=== PATIENT | female | born 1955 | race Hispanic/Latino ===

== ENCOUNTER 2019-02-11 19:36 | Observation (INO) | payer OTHER ==
[~2019-02-11] VITALS: Ht 162.6 cm; Wt 63.5 kg
[2019-02-11 20:07] LABS: BASOPHILS % 0.7 % (0.0-1.0); EOSINOPHILS # (AUTO) 0.1 (0.0-0.4); EOSINOPHILS % 1.2 % (0.0-6.0); HEMATOCRIT 33.2 % (34.2-44.1); HEMOGLOBIN 11.1 g/dL (12.0-16.0); LYMPHOCYTES # (AUTO) 1.7 (1.0-3.2); LYMPHOCYTES % 28.4 % (18.0-39.1); MEAN CORPUSCULAR HEMOGLOBIN 26.9 pg (28-32); MEAN CORPUSCULAR HGB CONC 33.4 g/dL (31-35); MEAN CORPUSCULAR VOLUME 80.6 fL (81-99); MONOCYTES # (AUTO) 0.8 (0.2-0.8); MONOCYTES % 13.9 % (4.4-11.3); NEUTROPHILS # (AUTO) 3.4 (2.1-6.9); NEUTROPHILS % 55.5 % (38.7-80.0); PLATELET COUNT 265 x10e3/uL (140-360); RED BLOOD COUNT 4.12 x10e6/uL (3.6-5.1); RED CELL DISTRIBUTION WIDTH 15.2 % (11.7-14.4)
[2019-02-11 20:22] LABS: ALANINE AMINOTRANSFERASE 11 IU/L (0-55); ALBUMIN 3.8 g/dL (3.5-5.0); ALBUMIN/GLOBULIN RATIO 1.1 (0.8-2.0); ALKALINE PHOSPHATASE 85 IU/L (40-150); ANION GAP 14.7 mmol/L (8-16); BLOOD UREA NITROGEN 10 mg/dL (7-26); BUN/CREATININE RATIO 15 (6-25); CALCIUM 9.6 mg/dL (8.4-10.2); CARBON DIOXIDE 26 mmol/L (22-29); CHLORIDE 96 mmol/L (98-107); CREATINE KINASE 58 IU/L (29-168); CREATININE, SERUM 0.68 mg/dL (0.57-1.11); EST GLOMERULAR FILTRATION RATE > 60 ML/MIN (60-); GLUCOSE 109 mg/dL (74-118); POTASSIUM 3.7 mmol/L (3.5-5.1); SODIUM 133 mmol/L (136-145)
[2019-02-11 20:23] LABS: AMYLASE 63 U/L (25-125); LIPASE 18 U/L (8-78)
--- NOTE | 2019-02-11 20:34 | NUR ---
pt to restroom for ua collection
[2019-02-11 20:49] LABS: BILIRUBIN,URINE NEGATIVE (NEGATIVE); CLARITY,URINE CLEAR (CLEAR); COLOR,URINE YELLOW (YELLOW); KETONES,URINE TRACE (NEGATIVE); LEUKOCYTE ESTERASE ,URINE NEGATIVE (NEGATIVE); NITRITE,URINE NEGATIVE (NEGATIVE); PROTEIN,URINE DIPSTICK NEGATIVE (NEGATIVE); URINE UROBILINOGEN 0.2 mg/dL (0.2 - 1)
--- NOTE | 2019-02-11 20:49 | NUR ---
URINE COLLECTED AND SENT
[2019-02-11 21:01] LABS: EPITHELIAL CELLS,URINE RARE /LPF
[2019-02-11] MEDS ORDERED: MORPHINE SULFATE 2 MG/ML SYR 1ML IV STA (21:14)
[2019-02-11] MEDS ORDERED: PANTOPRAZOLE 40 MG 10ML VIAL IV STA (21:14)
[2019-02-11] MEDS ORDERED: DICYCLOMINE HCL 20 MG/2 ML VIAL IM ONE (21:15)
--- NOTE | 2019-02-11 22:50 | Diagnostic Imaging Report ---
EXAM: Right Upper Quadrant Ultrasound INDICATION: ^RUQ PAIN ^[id number] ^2108 ^Y COMPARISON: None. TECHNIQUE: Transverse and longitudinal images of the right upper abdomen were obtained. FINDINGS: Liver: Size: 14.5 cm in the right midclavicular line, normal Appearance: Normal echogenicity, smooth contour Mass: No focal masses Gallbladder: Stones/Sludge: Shadowing gallstones measuring up to 2.3 cm. Wall: 0.3 cm Appearance: No pericholecystic fluid or hydrops. Sonographic Sethi's Sign: Negative Bile Ducts: Intrahepatic Ducts: No dilatation Extrahepatic Ducts: Common bile duct measures 1.2 cm, dilated. Echogenic structure within common bile duct, measuring 1.2 cm. Pancreas: Visualized pancreas is unremarkable. Right Kidney: Size: 9.4 cm Echogenicity: Normal Parenchymal thickness: Normal Collecting system: No hydronephrosis Stones: None Cyst/Mass: None Vessels: Aorta: Visualized portions are normal Inferior Vena Cava: Visualized portions are normal Main Portal Vein: 0.6 cm, normal size with hepatopetal flow. Free Fluid: No ascites or pleural effusion IMPRESSION: Cholelithiasis without evidence of cholecystitis. Dilated common bile duct with echogenic lesion within the duct, representing choledocholithiasis. Signed by: Dr. Alexander Michael MD on 02/11/2019 10:06 PM
--- OUTSIDE RECORDS SUMMARY | 2019-02-11 23:29 | XMS REPORT ---
[facility] Address Unknown Phone Unavailable Care Team Providers Care Produce Manager Name Role Phone Jeremi SILVA Unavailable Unavailable Problems This patient has no known problems. Allergies, Adverse Reactions, Alerts This patient has no known allergies or adverse reactions. Medications This patient has no known medications. Encounters Start Date/Time End Date/Time Encounter Type Admission Type Attending [facility] Facility Care Department Encounter ID 2018-04-06 00:00:00 2018-04-06 00:00:00 Outpatient [facility] [id number] 2018-04-06 00:00:00 2018-04-06 00:00:00 Outpatient [facility] [id number] 2018-04-06 00:00:00 2018-04-06 00:00:00 Outpatient [facility] [id number] 2018-03-16 00:00:00 2018-03-16 00:00:00 Outpatient [facility] [id number] 2018-03-16 00:00:00 2018-03-16 00:00:00 Outpatient [facility] [id number] 2018-03-15 00:00:00 2018-03-15 00:00:00 Outpatient [facility] [id number] 2018-03-15 00:00:00 2018-03-15 00:00:00 Outpatient [facility] [id number] 2018-03-10 00:00:00 2018-03-10 00:00:00 Outpatient [facility] [id number] 2018-03-10 00:00:00 2018-03-10 00:00:00 Outpatient [facility] [id number] 2018-02-12 00:00:00 2018-02-12 00:00:00 Outpatient [facility] [id number] 2018-02-11 08:58:48 2018-02-11 08:58:48 Outpatient [facility] [id number] 2018-02-11 00:00:00 2018-02-11 00:00:00 Outpatient [facility] [id number] 2018-02-08 07:19:54 2018-02-08 07:19:54 Outpatient [facility] [id number] 2018-02-03 08:56:36 2018-02-03 08:56:36 Outpatient [facility] [id number] 2018-02-01 13:56:51 2018-02-01 13:56:51 Outpatient [facility] [id number] 2017-04-06 00:00:00 2017-04-06 00:00:00 Outpatient [facility] [id number] 2016-09-30 00:00:00 2016-09-30 00:00:00 Outpatient [facility] [id number] Results Test Description Test Time Test Comments Text Results Atomic Results Result Comments US GALLBLADDER 2019-02-11 22:01:00 [place] [address] Patient Name: MACARIO PAEZ MR #: [id number] : 1955 Age/Sex: 63/F Req #: [id number] Adm Physician: Ordered by: ZACHARY SILVA MD Report #: [id number] Location: ER Room/Bed: Procedure: [id number] US/US GALLBLADDER Exam Date: 02/11/19 Exam Time: 2108 REPORT STATUS: Signed EXAM: Right Upper Quadrant Ultrasound INDICATION: RUQ PAIN [id number] Y COMPARISON: None. TECHNIQUE: Transverse and longitudinal images of the right upper abdomen were obtained. FINDINGS: Liver: Size: 14.5 cm in the right midclavicular line, normal Appearance: Normal echogenicity, smooth contour Mass: No focal masses Gallbladder: Stones/Sludge: Shadowing gallstones measuring up to 2.3 cm. Wall: 0.3 cm Appearance: No pericholecystic fluid or hydrops. Sonographic Sethi's Sign: Negative Bile Ducts: Intrahepatic Ducts: No dilatation Extrahepatic Ducts: Common bile duct measures 1.2 cm, dilated. Echogenic structure within common bile duct, measuring 1.2 cm. Pancreas: Visualized pancreas is unremarkable. Right Kidney: Size: 9.4 cm Echogenicity: Normal Parenchymal thickness: Normal Collecting system: No hydronephrosis Stones: None Cyst/Mass: None Vessels: Aorta: Visualized portions are normal Inferior Vena Cava: Visualized portions are normal Main Portal Vein: 0.6 cm, normal size with hepatopetal flow. Free Fluid: No ascites or pleural effusion IMPRESSION: Cholelithiasis without evidence of cholecystitis. Dilated common bile duct with echogenic lesion within the duct, representing choledocholithiasis. Signed by: Dr. Alexander Loja MD on 02/11/2019 10:06 PM Dictated By: ALEXANDER LOJA MD 05 Transcribed By: CAMILLE on 02/11/192205 COPY TO: ZACHARY SILVA MD
--- NOTE | 2019-02-12 00:10 | NUR ---
LACF IV WILL NOT FLOW ON PUMP. IV PATENT, + BLOOD RETURN. SALINE LOCKED IV AND STARTED SECOND LINE 20G TO R FOREARM X 1 STICK PER PT REQUEST. AWAKE ALERT SKIN W/D RESP NONLAB. NAD NOTED.
[2019-02-12] MEDS: ONDANSETRON HCL INJ 2MG/ML 2ML 2 MG/ML VIAL IV PRN ×4 (01:55→21:10)
[2019-02-12] MEDS: HYDROMORPHONE 1MG/1ML INJ IV PRN ×4 (01:55→21:10)
[2019-02-12 06:18] LABS: BASOPHILS % 0.4 % (0.0-1.0); EOSINOPHILS # (AUTO) 0.2 (0.0-0.4); HEMATOCRIT 30.7 % (34.2-44.1); HEMOGLOBIN 10.5 g/dL (12.0-16.0); LYMPHOCYTES # (AUTO) 2.4 (1.0-3.2); LYMPHOCYTES % 47.6 % (18.0-39.1); MEAN CORPUSCULAR HEMOGLOBIN 27.5 pg (28-32); MEAN CORPUSCULAR HGB CONC 34.2 g/dL (31-35); MEAN CORPUSCULAR VOLUME 80.4 fL (81-99); MONOCYTES # (AUTO) 0.8 (0.2-0.8); MONOCYTES % 15.5 % (4.4-11.3); NEUTROPHILS # (AUTO) 1.7 (2.1-6.9); NEUTROPHILS % 33.3 % (38.7-80.0); PLATELET COUNT 262 x10e3/uL (140-360); RED BLOOD COUNT 3.82 x10e6/uL (3.6-5.1); RED CELL DISTRIBUTION WIDTH 15.2 % (11.7-14.4)
--- NOTE | 2019-02-12 06:45 | NUR ---
REPORT TO TEREZA ACUSEY
[2019-02-12] MEDS: LEVOFLOXACIN 500MG/D5W 100ML IV SCH ×2 (07:30)
[2019-02-12 07:47] LABS: ALANINE AMINOTRANSFERASE 8 IU/L (0-55); ALBUMIN 3.3 g/dL (3.5-5.0); ALKALINE PHOSPHATASE 68 IU/L (40-150); AMYLASE 49 U/L (25-125); ANION GAP 13.6 mmol/L (8-16); BLOOD UREA NITROGEN 7 mg/dL (7-26); BUN/CREATININE RATIO 11 (6-25); CALCIUM 9.2 mg/dL (8.4-10.2); CARBON DIOXIDE 25 mmol/L (22-29); CHLORIDE 102 mmol/L (98-107); CREATININE, SERUM 0.64 mg/dL (0.57-1.11); EST GLOMERULAR FILTRATION RATE > 60 ML/MIN (60-); GLUCOSE 87 mg/dL (74-118); LIPASE 10 U/L (8-78); POTASSIUM 3.6 mmol/L (3.5-5.1); SODIUM 137 mmol/L (136-145)
[2019-02-12] MEDS: SODIUM CHLORIDE 0.9% 1000ML 1,000 ML IV SCH ×2 (07:50)
[2019-02-12] MEDS: PANTOPRAZOLE 40 MG 10ML VIAL IV SCH (09:24)
--- NOTE | 2019-02-12 09:30 | Consultation ---
DATE OF CONSULTATION: 02/12/2019 REASON FOR CONSULTATION: Abdominal pain. Cholelithiasis. HISTORY OF PRESENT ILLNESS: The patient is a 63-year-old female admitted through the emergency room to Dr. Liz's service complaining of abdominal pain for several days associated with nausea, vomiting, and diarrhea. The pain has been described as located in the mid part of the abdomen from right to left. It is not aggravated by food. She has not had any similar episodes in the past. The patient while in the emergency room underwent a gallbladder ultrasound that revealed cholelithiasis without evidence of cholecystitis with a wall of 0.3 cm and a common bile duct that measured 1.2 cm associated with a 1.2 intraluminal defects. Her admission white count and repeat white count remains normal. Hematocrit is today 30.7. Admission liver chemistries are all normal on two different occasions. Admission lipase and amylase have been normal. PAST MEDICAL HISTORY: Significant for history of "gastric ulcers" have undergone EGDs in the past. She has a history of arthritis for which she takes meloxicam. SURGERIES: Reported as only tubal ligation. She drinks, but does not smoke. ALLERGIES: SHE HAS NO KNOWN ALLERGIES. REVIEW OF SYSTEMS: Significant for what is stated. She has a history of dyspepsia, but she denies any fatty food intolerance or episode of right upper quadrant pain in the past. PHYSICAL EXAMINATION: GENERAL: Reveals a 63-year-old female, who complains of abdominal pain. She states that she does not have any pain now. She was recently in the past given pain medicine. HEAD, EYES, EARS, NOSE, AND THROAT: Reveals no acute process. LUNGS: Clear. HEART: Regular sinus rhythm. ABDOMEN: Nondistended. Bowel sounds are present. There is some diffuse hard to localize tenderness. She does not appear to be tender particularly in the right upper quadrant. EXTREMITIES: Reveal no clubbing, cyanosis, or edema. ASSESSMENT: Abdominal pain with gallstones. By ultrasound there is a defect in the common bile duct. The clinical picture of the patient is not in my opinion consistent with gallbladder disease, but rather with some type of acute gastroenteritis. PLAN: Plan is to proceed with the cholangio MRI CT to rule out the possibility of a common duct stone. Since I think that this could be an incidental finding due to her clinical presentation once she has had the cholangio MRI CT, I will request and order a CT scan of the abdomen and pelvis with oral and IV contrast to further evaluate this matter. The patient will be evaluated by GI, Dr. Jonathon Muir. She will need cholecystectomy at some point the GI work up is concluded.; Thank you very much for the courtesy of this consultation. MD AMY Winslow/SARAH /[id number]
--- NOTE | 2019-02-12 11:11 | NUR ---
patient in MRI. reports she is not able to complete MRI due to a dry throat. then that she needs something to help her relax. dr. Ludwig present and given ok to has some water for her throat and already ordered prn pain/nausea meds for patient to complete MRI
[2019-02-12] MEDS ORDERED: DIATRIZOATE MEGL/DIATRIZOA SOD 30 ML BTL PO ONE (11:24)
--- NOTE | 2019-02-12 11:51 | Diagnostic Imaging Report ---
MRCP CPT code: 09903 History: Nodule, vomiting, abdominal pain Comparison: Unremarkable ultrasound 02/01/2018. Technique: Multiplanar, multisequence images of the abdomen were obtained per MRCP protocol. 3D volume rendered reformation images of the biliary tree were performed. No intravenous gadolinium was administered. Findings: Intrahepatic ducts: No beading or narrowing Common Hepatic Duct: Measures 5 mm in diameter Cystic Duct: Normal morphology Common Bile Duct: Measures 6 mm in maximum diameter proximally and 7 mm distally with squared shoulders at the ampulla. No intraluminal filling defect to suggest choledocholithiasis. No beading or narrowing. Pancreas Duct: Normal morphology. No dilatation. Gallbladder: Present with a gallstone near the neck of the gallbladder measuring 17 mm. No gallbladder wall thickening or pericholecystic fluid Liver: Normal T1 and T2 signal. No mass Spleen: Normal T1 and T2 signal. No mass Pancreas: No mass Kidneys: No hydronephrosis. Lower pole cyst in the left kidney measures 9 mm. Adrenal glands: No mass Lymph nodes: No enlarged abdominal or periaortic lymph nodes. Bowel: Stomach and visualized portions of the small and large bowel are normal in diameter wall thickness. There are scattered diverticula in the descending colon. Visualized portions of the pelvic organs demonstrate a calcified uterine fibroid.. Vasculature: Unremarkable. Peritoneum/retroperitoneum: No free fluid or fluid collection. Bones: Mild degenerative changes of the spine. IMPRESSION: Cholelithiasis with 17 mm gallstone near the gallbladder neck. No evidence of choledocholithiasis. 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 The preliminary report was provided by Dr. Nickolas Liz at the time the study was performed. Thank you for your referral. Signed by: Dr. Mat Gross MD on 02/14/2019 11:06 AM
--- NOTE | 2019-02-12 12:42 | NUR ---
Dr. Kaycee Simeon in ER to see patient. new orders in chart. POC is to take pt to OR 02/13/19 for surgery. maintain NPO per Dr. Kaycee Simeon
[2019-02-12] MEDS: KCL 20MEQ/.9 SOD CHL 1,000 ML IV SCH (12:57)
--- NOTE | 2019-02-12 13:42 | Diagnostic Imaging Report ---
EXAMINATION: CT of the abdomen and pelvis with contrast. TECHNIQUE: Helical CT images of the abdomen and pelvis were performed from the lung bases to the lesser trochanters after the intravenous administration of 100 cc of Omnipaque 300 and the oral administration of enteric contrast. Coronal and sagittal reformatted images were obtained.Dose modulation, iterative reconstruction, and/or weight based adjustment of the mA/kV was utilized to reduce the radiation dose to as low as reasonably achievable. COMPARISON: None. CLINICAL HISTORY:Abdominal pain DISCUSSION: ABDOMEN/PELVIS: LOWER THORAX:Unremarkable. HEPATOBILIARY: No focal hepatic lesions. No intra-or extrahepatic biliary ductal dilation. Cholelithiasis. SPLEEN: No splenomegaly. PANCREAS: No focal masses or ductal dilatation. ADRENALS: No adrenal nodules. KIDNEYS/URETERS: No hydronephrosis, stones, or solid mass lesions. PELVIC ORGANS/BLADDER: Bladder is normal. Calcified fibroid uterus. PERITONEUM/RETROPERITONEUM: No free air or fluid. LYMPH NODES: No intra-abdominal, retroperitoneal, pelvic or inguinal lymphadenopathy. VESSELS: Vascular calcifications. GI TRACT: Diverticulosis without inflammatory change. BONES AND SOFT TISSUE: No bony destructive lesions. No soft tissue abnormalities. IMPRESSION: Cholelithiasis. No acute finding. Diverticulosis without inflammatory change Signed by: Dr. Nickolas Liz M.D. on 02/12/2019 1:39 PM
--- NOTE | 2019-02-12 15:00 | History and Physical ---
CHIEF COMPLAINT: A 63-year-old female, comes in with abdominal pain and nausea. HISTORY OF PRESENT ILLNESS: A 63-year-old female, comes in with abdominal pain right upper quadrant. The patient has no previous medical history. The patient has history of osteoarthritis, which she takes [id number] medications as needed. PAST SURGICAL HISTORY: The patient had an ulcer repair in 2017 at [place], tubal ligation also done, otherwise negative. SOCIAL HISTORY: Positive for smoker, smokes about 5 to 6 cigarettes a day for the last for 40 years. The patient has no EtOH abuse or no IV drug abuse. Recently from her . REVIEW OF SYSTEMS: Negative for chest pain. No shortness of breath. Positive for nausea and vomiting. No diarrhea. No constipation. No rectal bleeding. No hematochezia. No hematemesis. No diplopia. No blurry vision. Positive for headache. PHYSICAL EXAMINATION: GENERAL: The patient is alert and oriented x3, 63-year-old female with no pain at this time secondary to medication. HEENT: Normocephalic and atraumatic. The patient has no icterus present. CVS: S1 and S2 normal. Regular rate and rhythm. ABDOMEN: Tender in the right upper quadrant. EXTREMITIES: No clubbing. No cyanosis. No edema. LUNGS: Clear to auscultation bilaterally. LABORATORY VALUES: Initial white count is 6.05, hemoglobin of 11.1, hematocrit of 33.2, neutrophil count was no left shift 55.5. The patient's chemistries were normal. Sodium was 133, potassium 3.7, BUN of 10, and creatinine of 0.68. IMAGING STUDIES: Gallbladder ultrasound done in the ER shows cholelithiasis without evidence of cholecystitis and dilated common bile duct with echogenic lesions within the duct representing choledocholithiasis. ASSESSMENT: A 63-year-old female with choledocholithiasis and bile stones in the common bile duct. PLAN: Plan is to do an MRCP. The patient has been given IV pain medication and also been started on levofloxacin and pantoprazole for reflux esophagitis. Plan is to consult Surgery and GI, probably will need retrieval of the stone. We will do an MRCP initially and proceed from there. Further recommendation per clinical course. We will continue to monitor the patient's. 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 MD MARIO Hogue/SARAH /[id number]
[2019-02-12] MEDS ORDERED: IOPAMIDOL 370 MG/ML 200 ML INFUS..BTL INJ ONE (16:00)
[2019-02-12] MEDS ORDERED: SODIUM CHLORIDE 0.9% 50ML 50 ML ONE (16:00)
--- NOTE | 2019-02-12 17:27 | NUR ---
received report from avtar in er
[2019-02-12 17:43] VITALS: BP 183/86
--- NOTE | 2019-02-12 17:43 | NUR ---
received pt to floor aa0x3 pt is in no s.s of distress reports no abd pain at this time pt has an iv to the left ac 18 with fluids and right fr 20 sl both sites clean and dry pt is npo will continue to monitor pt at this time side railsx2, bed wheels locked, call light is within easy reach instructed to call for assistance if needed
[2019-02-12] MEDS ORDERED: MELOXICAM7.5 MG PO (18:04)
--- NOTE | 2019-02-12 18:38 | NUR ---
pt has singed consent for procedure tomorrow
--- NOTE | 2019-02-12 19:00 | NUR ---
RECEIVED PATIENT IN BEDSIDE SHIFT REPORT. PATIENT A&OX3, NO PAIN REPORTED AT THIS TIME. NO S&S OF DISTRESS NOTED. L AC 18G IV ASYMPTOMATIC, INTACT, AND PATENT, RUNNING NS WITH 20 MEQ OF KCL AT 100ML/HR. BED LOCKED IN LOWEST POSITION, SIDE RAILS UPX2, CALL LIGHT IN REACH. PATIENT OBSERVED WALKING IN ROOM, STEADY GAIT NOTED.
[2019-02-12 20:00] VITALS: BP 188/83
[2019-02-12 21:02] VITALS: BP 188/83
[2019-02-13] VITALS (8 sets, daily range): BP systolic 134–184; BP diastolic 60–84
--- NOTE | 2019-02-13 00:38 | NUR ---
MD PETERSOND IN TO SEE PATIENT AT THIS TIME.
[2019-02-13] MEDS: KCL 20MEQ/.9 SOD CHL 1,000 ML IV SCH ×3 (00:58→18:45)
[2019-02-13 05:52] LABS: BASOPHILS % 0.7 % (0.0-1.0); EOSINOPHILS # (AUTO) 0.2 (0.0-0.4); EOSINOPHILS % 2.8 % (0.0-6.0); HEMATOCRIT 31.9 % (34.2-44.1); HEMOGLOBIN 10.2 g/dL (12.0-16.0); LYMPHOCYTES # (AUTO) 2.8 (1.0-3.2); LYMPHOCYTES % 52.4 % (18.0-39.1); MEAN CORPUSCULAR HEMOGLOBIN 26.5 pg (28-32); MEAN CORPUSCULAR VOLUME 82.9 fL (81-99); MONOCYTES # (AUTO) 0.8 (0.2-0.8); MONOCYTES % 14.2 % (4.4-11.3); NEUTROPHILS # (AUTO) 1.6 (2.1-6.9); NEUTROPHILS % 29.7 % (38.7-80.0); PLATELET COUNT 236 x10e3/uL (140-360); RED BLOOD COUNT 3.85 x10e6/uL (3.6-5.1); RED CELL DISTRIBUTION WIDTH 15.5 % (11.7-14.4)
[2019-02-13 06:31] LABS: ALANINE AMINOTRANSFERASE 8 IU/L (0-55); ALBUMIN 3.4 g/dL (3.5-5.0); ALBUMIN/GLOBULIN RATIO 1.1 (0.8-2.0); ALKALINE PHOSPHATASE 73 IU/L (40-150); ANION GAP 14.6 mmol/L (8-16); BLOOD UREA NITROGEN 6 mg/dL (7-26); BUN/CREATININE RATIO 9 (6-25); CALCIUM 9.3 mg/dL (8.4-10.2); CARBON DIOXIDE 21 mmol/L (22-29); CHLORIDE 105 mmol/L (98-107); CREATININE, SERUM 0.65 mg/dL (0.57-1.11); EST GLOMERULAR FILTRATION RATE > 60 ML/MIN (60-); GLUCOSE 76 mg/dL (74-118); POTASSIUM 3.6 mmol/L (3.5-5.1); SODIUM 137 mmol/L (136-145)
[2019-02-13] MEDS ORDERED: HYDRALAZINE HCL 20 MG/ML VIAL IV PRN (06:45)
[2019-02-13] MEDS: PANTOPRAZOLE 40 MG 10ML VIAL IV SCH (08:11)
[2019-02-13] MEDS ORDERED: SUGAMMADEX SODIUM 200 MG/2 ML VIAL IV ONE (08:37)
[2019-02-13] MEDS: HYDROMORPHONE 1MG/1ML INJ IV PRN ×3 (09:00→23:14)
--- NOTE | 2019-02-13 09:44 | Progress Note ---
DATE: SUBJECTIVE: A 63-year-old female with choledocholithiasis. Comes in with abdominal pain. The patient is scheduled for surgery today. No chest pain. No shortness of breath. Abdominal pain still persist. Imaging studies were done yesterday. The MRCP shows cholelithiasis, no cholecystitis or visualized choledocholithiasis. The patient's abdominal CT showed no acute findings for cholelithiasis. The patient is scheduled for surgery. OBJECTIVE: VITAL SIGNS: Today, temperature is 96.7, pulse of 69, respirations of 18, blood pressure is 184/84, pulse oximetry 95%. HEENT: Normocephalic, atraumatic. Pupils are reactive to light and accommodation. CVS: S1 and S2 normal. Regular rate and rhythm. ABDOMEN: Tender in the right upper quadrant. EXTREMITIES: No clubbing, cyanosis and/or no edema. ASSESSMENT: Cholelithiasis. PLAN: Lap carlos cystectomy by surgery today. Continue with postoperative care. Blood pressure monitoring and also we will regulate the blood pressure with antihypertensive. Further recommendation as per clinical course. We will continue to monitor the patient after surgery. MD MARIO Hogue/MODL /[id number]
--- NOTE | 2019-02-13 09:51 | NUR ---
PT BEING PICKED UP FOR PROCEDURE
[2019-02-13] MEDS ORDERED: BUPIVACAINE 0.5%/EPI 30 ML SDV INJ ONE (10:05)
[2019-02-13] MEDS ORDERED: ONDANSETRON HCL INJ 2MG/ML 2ML 2 MG/ML VIAL IV PRN (11:15)
[2019-02-13] MEDS ORDERED: PANTOPRAZOLE 40 MG 10ML VIAL IV SCH (11:15)
[2019-02-13] MEDS ORDERED: FENTANYL CITRATE/PF 100MCG/2 ML INJ ONE ×2 (11:44→17:59)
--- NOTE | 2019-02-13 13:05 | Operative Report ---
DATE OF PROCEDURE: 02/13/2019 SURGEON: Albin Simeon MD PREOPERATIVE DIAGNOSES: Cholelithiasis, biliary colic, and cholecystitis. POSTOPERATIVE DIAGNOSES: Cholelithiasis, biliary colic, and cholecystitis. PROCEDURE PERFORMED: Laparoscopic cholecystectomy with lysis of adhesions, right upper quadrant. ANESTHESIA: General endotracheal. ESTIMATED BLOOD LOSS: Minimal. DRAINS: None. CHANNEL SUPERVISOR: Jyoti Alcantar, licensed surgical instrument mechanic. INDICATIONS AND FINDINGS: The patient is a 63-year-old female admitted to Dr. Liz's service complaining of abdominal pain, nausea, vomiting, and diarrhea. While in the emergency room, she underwent an ultrasound that revealed cholelithiasis with dilated common bile duct and choledocholithiasis. Her liver chemistries were normal. There was no history of jaundice. There was no history of pancreatitis. Because of the ultrasound findings, she underwent a high-quality cholangio MRI CT that revealed no choledocholithiasis. Her liver chemistries remain normal. Because of the history of the diarrhea, she also underwent a preoperative CT scan that revealed no acute process and after she was also seen by GI we proceeded with laparoscopic cholecystectomy. INTRAOPERATIVE FINDINGS: The patient had a gallbladder that contained several large stones. The gallbladder wall was minimally thickened, but there were no evidence of acute cholecystitis. There were multiple adhesions in the right upper quadrant and two from the gallbladder to the stomach and the omentum part and near the transverse colon. All those were sharply lysed exposing the operative field for laparoscopic cholecystectomy. The common bile duct did not look to be grossly dilated. The cystic duct was short. DESCRIPTION OF PROCEDURE: With the patient lying on the operative table in the supine position, after administration of general anesthesia, she was prepped and draped for laparoscopic cholecystectomy. The procedure was begun by establishing the pneumoperitoneum and we attempted in the right upper quadrant, but we were not able to get free access, so we placed an incision superior to the umbilicus because of previous tubal ligation scar inferior to the umbilicus. Once we gained full access of the abdominal cavity after the saline drop test was performed the indicated intraperitoneal position of the needle, we insufflated the pneumoperitoneum to 15 mm of pressure. Then, we went ahead and placed a 5 mm trocar in the right upper quadrant and then after ascertaining that there were no adhesions to the umbilicus area, we placed the 10/11 trocar in that location. Finally, we placed a 10 mm subxiphoid port and one in the right anterior axillary line. We proceeded with the lysis of adhesions as previously described, and then we went ahead and exposed the cystic duct to the neck of the gallbladder. We saw the junction with the common bile duct, identified the cystic artery after identifying the triangle of safety, we clipped the cystic duct distally three times. Once proximally transected, the cystic artery was transected between titanium clips also and then we took the gallbladder down with a combination of electrocautery and traction and counter traction until we detached the gallbladder. After we did that, we placed the gallbladder in an endobag and removed it through the umbilical port. We inspected the operative field. We irrigated the right upper quadrant. After we ascertained that there was no bleeding, no bile leak no apparent bowel injury. We went ahead and released the pneumoperitoneum, closed the wound using 0-Vicryl for the umbilical fascia, 3-0 Vicryl for the subcutaneous tissue in that location as well as the subxiphoid port and the skin of all the ports was closed using chuck. 0.25% Marcaine with epinephrine was given as local block at the end of the case. The patient tolerated the procedure well, taken to recovery room in stable condition. MD AMY Winslow/SARAH /[id number]
[2019-02-13] MEDS: HYDROCODONE/APAP 7.5MG-325MG 1 EA TAB PO PRN (15:39)
--- NOTE | 2019-02-13 15:43 | NUR ---
SPOKE WITH MD HOLDEN REGARDING PT C.P OF THROAT PAIN . CHLORASEPTIC SPRAY ORDERS GIVEN
[2019-02-13] MEDS ORDERED: CHLORASEPTIC SPRAY 177 ML BTL MM PRN (15:45)
[2019-02-13] MEDS ORDERED: LIDOCAINE HCL 2% LOCAL INJ 5 ML SDV VIAL INJ ONE (16:42)
[2019-02-13] MEDS ORDERED: LABETALOL HCL 5 MG/ML 20ML VIAL ONE (16:42)
[2019-02-13] MEDS ORDERED: ACETAMINOPHEN 1000 MG/100 ML IV ONE (16:42)
[2019-02-13] MEDS ORDERED: SEVOFLURANE INHAL SOLN 250 ML PEN BTL ONE (16:42)
[2019-02-13] MEDS ORDERED: ONDANSETRON HCL INJ 2MG/ML 2ML 2 MG/ML VIAL ONE (16:42)
[2019-02-13] MEDS ORDERED: PROPOFOL IV EMULSION 10 MG/ML 20 ML VIAL ONE (16:42)
[2019-02-13] MEDS ORDERED: ROCURONIUM BROMIDE 10 MG/ML 5ML VIAL ONE (16:42)
[2019-02-13] MEDS ORDERED: DEXAMETHASONE SOD PHOS INJ 4 MG/ML VIAL ONE (16:42)
[2019-02-13] MEDS: CEFTRIAXONE SOD 1 GM/NS 50 ML 50 ML IV SCH (17:40)
[2019-02-13] MEDS ORDERED: MIDAZOLAM HCL 2 MG/2 ML VIAL ONE (17:59)
--- NOTE | 2019-02-13 19:45 | NUR ---
RECEIVED PT IN BED AOX3 DENIES PAIN NOW RESPIRATIONS ARE EVEN AND UNLABORED .PT HAS HAS 4 TROCHANTER SITE AT THE ABDOMEN .LEFT AC 20 G NS AT 100 .CALL LIGHT WITH IN REACH .CONTINUE TO MONITOR
[2019-02-13] MEDS: LEVOFLOXACIN 500MG/D5W 100ML IV SCH (23:15)
[2019-02-14] VITALS: BP 103/53
[2019-02-14] MEDS ORDERED: ACETAMINOPHEN 325 MG TAB PO PRN (00:30)
[2019-02-14] MEDS: HYDROCODONE/APAP 7.5MG-325MG 1 EA TAB PO PRN ×3 (03:10→12:20)
[2019-02-14 04:00] VITALS: BP 112/58
[2019-02-14] MEDS: KCL 20MEQ/.9 SOD CHL 1,000 ML IV SCH (04:45)
[2019-02-14] MEDS: CEFTRIAXONE SOD 1 GM/NS 50 ML 50 ML IV SCH (05:00)
--- NOTE | 2019-02-14 06:25 | Progress Note ---
DATE: SUBJECTIVE: A 63-year-old female, who came in with abdominal pain and was found to have acute cholecystitis, status post laparoscopic cholecystectomy, doing well, had 1 bowel movement and passing urine freely. No chest pain. No shortness of breath. Does complain of some sore throat, which the tonsils are enlarged. The patient has been put on Rocephin for this. The patient is currently stable. No complaints. OBJECTIVE: VITAL SIGNS: Temperature is 100.3, pulse of 99, respirations of 18, blood pressure is 103/53, pulse oximetry of 94%. HEENT: Normocephalic, atraumatic. Tonsils are enlarged. CVS: S1 and S2 normal. Regular rate and rhythm. ABDOMEN: Soft and nondistended. The incision sites has no discharge and looks clean. EXTREMITIES: No clubbing, no cyanosis, no edema. SCDs are in place. LABORATORY VALUES: None done today. The patient's hemoglobin and hematocrit are stable yesterday. We will do an H and H today. ASSESSMENT: 1. Acute cholecystitis, status post laparoscopic cholecystectomy. 2. Pharyngitis. Continue antibiotic. 3. Hypertension. 4. The patient's pain is controlled. We will continue to monitor the patient. Possible discharge tonight or early in the morning depending on patient's progress. MD MARIO Hogue/IQRAL /[id number]
[2019-02-14 06:26] LABS: RETICULOCYTE % 1.4 % (0.8-2.2)
[2019-02-14 07:08] LABS: FERRITIN 20.53 ng/mL (4.63-204.00)
--- NOTE | 2019-02-14 07:28 | NUR ---
PT C/O PAIN AND GIVEN ORDERED PAIN MEDICATION.PT HAD TEM AND GIVEN TYLENOL .BEDSIDE REPORT GIVEN TO THE ONCOMING NURSE.
[2019-02-14] MEDS: PANTOPRAZOLE 40 MG 10ML VIAL IV SCH (08:23)
[2019-02-14 08:25] VITALS: BP 121/58
[2019-02-14 08:30] VITALS: BP 121/58
--- NOTE | 2019-02-14 11:25 | NUR ---
TELEPHONED MD HOLDEN TO MAKE AWARE THAT PT HAS BEEN DISCHARGED BY SURGERY , AND TO CLARIFY IF WANTS TO DISCHARGE PT TODAY, AWAITING CALL BACK
[2019-02-14] MEDS ORDERED: TYLENOL WITH C1 EACH PO (11:47)
[2019-02-14 12:42] VITALS: BP 167/80
--- NOTE | 2019-02-14 14:01 | NUR ---
DISCHARGE INSTRUCTIONS REVIEWED WITH PT, VERBALIZED UNDERSTANDING, WHEELED OFF UNIT VIA WC OR DISCHARGE, NO CHANGE IN CONDITION
== END 2019-02-14 14:07 | disposition home or self-care (01) ==
LOC: ER 19:36 → ERHOLD 23:26 → INTOOBSV 23:26 → MED/SURG 02-12 17:42
PROVIDERS: ADMIT Family Medicine; ATTEND Family Medicine
DX: K80.10 Calculus of gallbladder with chronic cholecystitis without obstruction (principal); Z87.11 Personal history of peptic ulcer disease; M19.90 Unspecified osteoarthritis, unspecified site; D64.9 Anemia, unspecified
CPT/HCPCS: 36415 ×4; 47562; 74177; 74181; 76705; 80053 ×3; 81001; 82150 ×2; 82550; 82553; 82607; 82728; 83540; 83690 ×2; 84466; 84484; 85025 ×3; 85045; 85651; 88304; 93005; 99284; C1766; C9113 ×4; G0378 ×4; J0131; J0360; J0500; J0696 ×2; J1100; J1170 ×3; J1956 ×2; J2001; J2250; J2270; J2405 ×2; J2704; J3010; J3490; J7030 ×2; Q9967

== ENCOUNTER 2021-01-17 08:42 | Emergency (ER) | payer OTHER ==
[~2021-01-17] VITALS: Ht 162.6 cm; Wt 56.7 kg
[~2021-01-17 08:42] MED LIST: MELOXICAM7.5 MG PO; TYLENOL WITH C1 EACH PO
[2021-01-17] MEDS ORDERED: ASPIRIN 81 MG CHEW TAB PO ONE (09:15)
[2021-01-17] MEDS ORDERED: SODIUM CHLORIDE 0.9% 1000ML 1,000 ML IV STA (09:20)
[2021-01-17] MEDS ORDERED: ONDANSETRON HCL INJ 2MG/ML 2ML 2 MG/ML VIAL IV STA (09:20)
[2021-01-17] MEDS ORDERED: MORPHINE SULFATE INJ 4 MG/ML INJ 1ML IV ONE ×2 (09:30→10:00)
[2021-01-17 09:36] LABS: BASOPHILS % 0.3 % (0.0-1.0); EOSINOPHILS # (AUTO) 0.1 (0.0-0.4); HEMATOCRIT 38.6 % (34.2-44.1); HEMOGLOBIN 13.2 g/dL (12.0-16.0); LYMPHOCYTES # (AUTO) 2.4 (1.0-3.2); LYMPHOCYTES % 40.3 % (18.0-39.1); MEAN CORPUSCULAR HGB CONC 34.2 g/dL (31-35); MEAN CORPUSCULAR VOLUME 81.8 fL (81-99); MONOCYTES # (AUTO) 0.8 (0.2-0.8); MONOCYTES % 13.1 % (4.4-11.3); NEUTROPHILS # (AUTO) 2.7 (2.1-6.9); PLATELET COUNT 250 x10e3/uL (140-360); RED BLOOD COUNT 4.72 x10e6/uL (3.6-5.1); RED CELL DISTRIBUTION WIDTH 15.1 % (11.7-14.4)
[2021-01-17] MEDS ORDERED: MORPHINE SULFATE INJ 2 MG/ML SYR ONE (09:57)
[2021-01-17 10:10] LABS: ALANINE AMINOTRANSFERASE 12 IU/L (0-55); ALBUMIN 4.3 g/dL (3.5-5.0); ALBUMIN/GLOBULIN RATIO 1.1 (0.8-2.0); ALKALINE PHOSPHATASE 81 IU/L (40-150); ANION GAP 15.8 mmol/L (8-16); BLOOD UREA NITROGEN 8 mg/dL (7-26); BUN/CREATININE RATIO 12 (6-25); CALCIUM 9.4 mg/dL (8.4-10.2); CARBON DIOXIDE 28 mmol/L (22-29); CHLORIDE 98 mmol/L (98-107); CREATINE KINASE 57 IU/L (29-168); CREATININE, SERUM 0.67 mg/dL (0.57-1.11); EST GLOMERULAR FILTRATION RATE 89 ML/MIN (60-); GLUCOSE 105 mg/dL (74-118); POTASSIUM 3.8 mmol/L (3.5-5.1); SODIUM 138 mmol/L (136-145)
[2021-01-17 10:20] LABS: CLARITY,URINE SL CLOUDY (CLEAR); COLOR,URINE YELLOW (YELLOW)
[2021-01-17 10:21] LABS: KETONES,URINE 2+ (NEGATIVE); LEUKOCYTE ESTERASE ,URINE NEGATIVE (NEGATIVE); NITRITE,URINE POSITIVE (NEGATIVE); PROTEIN,URINE DIPSTICK NEGATIVE (NEGATIVE); URINE UROBILINOGEN 0.2 mg/dL (0.2 - 1)
[2021-01-17] MEDS ORDERED: HYDRALAZINE HCL 20 MG/ML VIAL IV STA (10:40)
[2021-01-17 10:41] LABS: BACTERIA,URINE MODERATE /HPF; EPITHELIAL CELLS,URINE FEW /LPF; RBC,URINE 0-5 /HPF (0-5)
[2021-01-17] MEDS ORDERED: CEFTRIAXONE 1 GM VIAL IM ONE (11:00)
[2021-01-17] MEDS ORDERED: SODIUM CHLORIDE 0.9% 50ML 50 ML ONE (11:11)
[2021-01-17] MEDS ORDERED: IOPAMIDOL 370 MG/ML 200 ML INFUS..BTL INJ ONE (11:11)
[2021-01-17] MEDS ORDERED: IBUPROFEN600 MG PO (12:26)
[2021-01-17] MEDS ORDERED: ONDANSETRON ODT4 MG PO (12:26)
[2021-01-17] MEDS ORDERED: ONDANSETRON HCL 4 MG ORAL DISINTEGRATING TAB PO ONE (12:30)
[2021-01-17] MEDS ORDERED: CEPHALEXIN500 MG PO (12:48)
[2021-01-17 12:52] VITALS: BP 138/76
== END 2021-01-17 12:54 | disposition home or self-care (01) ==
LOC: ER 09:00
DX: R10.13 Epigastric pain (principal); N39.0 Urinary tract infection, site not specified; D25.9 Leiomyoma of uterus, unspecified; K76.0 Fatty (change of) liver, not elsewhere classified; F17.210 Nicotine dependence, cigarettes, uncomplicated
CPT/HCPCS: 36415; 74177; 80053; 81001; 82550; 82553; 83690; 84484; 85025; 93005; 99284; J0360; J0696; J2270; J2405; J7030; Q0162; Q9967

== ENCOUNTER 2021-08-17 15:23 | Emergency (ER) | payer SELFPAY ==
[~2021-08-17] VITALS: Ht 162.6 cm; Wt 56.7 kg
[~2021-08-17 15:23] MED LIST changes: +CEPHALEXIN500 MG PO; +IBUPROFEN600 MG PO; +ONDANSETRON ODT4 MG PO
[2021-08-17 16:02] LABS: BASOPHILS % 0.7 % (0.0-1.0); EOSINOPHILS # (AUTO) 0.1 (0.0-0.4); EOSINOPHILS % 1.7 % (0.0-6.0); HEMATOCRIT 38.8 % (34.2-44.1); HEMOGLOBIN 13.3 g/dL (12.0-16.0); LYMPHOCYTES # (AUTO) 1.8 (1.0-3.2); LYMPHOCYTES % 33.6 % (18.0-39.1); MEAN CORPUSCULAR HEMOGLOBIN 28.4 pg (28-32); MEAN CORPUSCULAR HGB CONC 34.3 g/dL (31-35); MEAN CORPUSCULAR VOLUME 82.7 fL (81-99); MONOCYTES # (AUTO) 0.7 (0.2-0.8); MONOCYTES % 13.3 % (4.4-11.3); NEUTROPHILS # (AUTO) 2.7 (2.1-6.9); NEUTROPHILS % 50.5 % (38.7-80.0); PLATELET COUNT 311 x10e3/uL (140-360); RED BLOOD COUNT 4.69 x10e6/uL (3.6-5.1); RED CELL DISTRIBUTION WIDTH 14.7 % (11.7-14.4)
[2021-08-17 16:08] LABS: INR 0.87; PARTIAL THROMBOPLASTIN TIME 24.1 seconds (23.8-35.5); PROTHROMBIN TIME 12.6 seconds (11.9-14.5)
[2021-08-17 16:34] LABS: ALANINE AMINOTRANSFERASE 10 IU/L (0-55); ALBUMIN/GLOBULIN RATIO 0.9 (0.8-2.0); ALKALINE PHOSPHATASE 78 IU/L (40-150); ANION GAP 15.6 mmol/L (8-16); BLOOD UREA NITROGEN 15 mg/dL (7-26); BUN/CREATININE RATIO 23 (6-25); CALCIUM 9.2 mg/dL (8.4-10.2); CARBON DIOXIDE 24 mmol/L (22-29); CHLORIDE 99 mmol/L (98-107); CREATINE KINASE 47 IU/L (29-168); CREATININE, SERUM 0.66 mg/dL (0.57-1.11); EST GLOMERULAR FILTRATION RATE 90 ML/MIN (60-); GLUCOSE 94 mg/dL (74-118); POTASSIUM 3.6 mmol/L (3.5-5.1); SODIUM 135 mmol/L (136-145)
[2021-08-17] MEDS ORDERED: IOPAMIDOL 370 MG/ML 100 ML INFUS..BTL INJ ONE (18:02)
[2021-08-17] MEDS ORDERED: ONDANSETRON HCL INJ 2MG/ML 2ML 2 MG/ML VIAL IV STA (18:07)
[2021-08-17 18:32] LABS: AMPHETAMINES SCREEN,URINE NEGATIVE (NEGATIVE); BENZODIAZEPINES SCREEN,URINE NEGATIVE (NEGATIVE); PHENCYCLIDINE SCREEN,URINE NEGATIVE (NEGATIVE)
[2021-08-17 18:33] LABS: CLARITY,URINE CLEAR (CLEAR); COLOR,URINE YELLOW (YELLOW); KETONES,URINE 2+ (NEGATIVE); LEUKOCYTE ESTERASE ,URINE NEGATIVE (NEGATIVE); NITRITE,URINE NEGATIVE (NEGATIVE); PROTEIN,URINE DIPSTICK NEGATIVE (NEGATIVE); URINE UROBILINOGEN 0.2 mg/dL (0.2 - 1)
[2021-08-17 18:43] LABS: BACTERIA,URINE FEW /HPF; EPITHELIAL CELLS,URINE FEW /LPF; WBC,URINE (MAN) 0-5 /HPF (0-5)
== END 2021-08-17 19:39 | disposition home or self-care (01) ==
LOC: ER 15:57
DX: R11.2 Nausea with vomiting, unspecified (principal); K52.9 Noninfective gastroenteritis and colitis, unspecified; R10.13 Epigastric pain; S80.862A Insect bite (nonvenomous), left lower leg, initial encounter; S80.861A Insect bite (nonvenomous), right lower leg, initial encounter; S40.862A Insect bite (nonvenomous) of left upper arm, initial encounter; S40.861A Insect bite (nonvenomous) of right upper arm, initial encounter; S20.369A Insect bite (nonvenomous) of unspecified front wall of thorax, initial encounter; Z20.822 Contact with and (suspected) exposure to COVID-19; F17.210 Nicotine dependence, cigarettes, uncomplicated
CPT/HCPCS: 36415; 71045; 74177; 80053; 80307; 81001; 82550; 82553; 83690; 84484; 85025; 85610; 85730; 93005; 99284; C9113; J2405; Q9967; U0002

== ENCOUNTER 2024-02-05 11:53 | Emergency (ER) | payer SELFPAY ==
[~2024-02-05] VITALS: Ht 162.6 cm; Wt 51.3 kg
[2024-02-05 12:21] VITALS: PULSE 83; RESP 17; TEMP 98.5
[2024-02-05] MEDS: TRAMADOL HCL 50 MG TAB PO ONE (13:27)
[2024-02-05] MEDS: DEXAMETHASONE SOD PHOS 10 MG/1 ML VIAL IM ONE (13:27)
[2024-02-05] MEDS ORDERED: MEDROL4 M2 PO (13:33)
[2024-02-05] MEDS ORDERED: ULTRAM 50MG50 MG PO (13:33)
[2024-02-05] MEDS ORDERED: METHOCARBAMOL500 MG PO (13:33)
[2024-02-05 14:11] VITALS: BP 159/72; PULSE 75; RESP 18; O2SAT 100
== END 2024-02-05 14:13 | disposition home or self-care (01) ==
LOC: ER 13:09
DX: M54.42 Lumbago with sciatica, left side (principal); I10 Essential (primary) hypertension; M19.09 Primary osteoarthritis, other specified site; F17.210 Nicotine dependence, cigarettes, uncomplicated
CPT/HCPCS: 99282; J1100

== ENCOUNTER 2024-04-05 15:41 | Emergency (ER) | payer SELFPAY ==
[~2024-04-05] VITALS: Ht 162.6 cm; Wt 51.3 kg
[~2024-04-05 15:41] MED LIST changes: +MEDROL4 M2 PO; +METHOCARBAMOL500 MG PO; +ULTRAM 50MG50 MG PO
[2024-04-05 18:02] VITALS: PULSE 68; RESP 16; TEMP 97; O2SAT 100
== END 2024-04-05 18:17 | disposition home or self-care (01) ==
LOC: ER 16:11
DX: M25.551 Pain in right hip (principal); I10 Essential (primary) hypertension; M19.09 Primary osteoarthritis, other specified site; Z87.19 Personal history of other diseases of the digestive system; F17.210 Nicotine dependence, cigarettes, uncomplicated
CPT/HCPCS: 99283